=== PATIENT | female | born 1975 | race Caucasian/White ===

== ENCOUNTER → 2018-08-04 17:59 | Outpatient (CLI) | payer OTHER ==
[2011-12-22 09:01] VITALS: BMI 27.0
== END | disposition home or self-care (01) ==
LOC: D.MAMMO 11:30
DX: Z12.31 Encounter for screening mammogram for malignant neoplasm of breast (principal)

== ENCOUNTER 2018-08-09 08:00 | Outpatient (CLI) | payer OTHER ==
[2011-12-22 09:01] VITALS: BMI 27.0
== END 2018-08-09 09:00 | disposition home or self-care (01) ==
LOC: D.MAMMO 08:00
DX: R92.8 Other abnormal and inconclusive findings on diagnostic imaging of breast (principal)